=== PATIENT | female | born 1995 | race Two or more races ===

== ENCOUNTER 2023-09-15 09:17 | Emergency (ER) | payer MEDICAID ==
[~2023-09-15] VITALS: Ht 152.4 cm; Wt 93.0 kg
[2023-09-15 09:41] LABS: Basophils # (auto) 0.1 10 ^3/uL (0-0.2); Basophils % (auto) 0.8 % (0.0-2.0); Eosinophils # (auto) 0.2 10 ^3/uL (0-0.8); Eosinophils % (auto) 2.2 % (0.0-7.0); Hematocrit 38.4 % (36.0-46.0); Hemoglobin 13.2 g/dL (12.2-16.2); Lymphocytes # (auto) 2.2 10 ^3/uL (0.4-5.4); Lymphocytes % (auto) 30.3 % (10.0-50.0); Mean Corpuscular Hemoglobin 29.6 pg (28.0-32.0); Mean Corpuscular Hgb Conc. 34.3 g/dL (32.0-36.0); Mean Corpuscular Volume 86.3 fL (80.0-100.0); Monocytes # (auto) 0.6 10 ^3/uL (0-1.3); Monocytes % (auto) 8.7 % (0.0-12.0); Neutrophils # (auto) 4.3 10 ^3/uL (1.6-8.6); Nucleated Red Blood Cells % 0.1 %; Red Blood Cells 4.44 10^6/uL (4.0-5.20); Red Cell Distribution Width 13.7 % (11.8-14.3); White Blood Cell 7.3 10^3/uL (4.4-10.8)
[2023-09-15 09:47] LABS: Urine Epithelial Cast None Seen /hpf (<5)
[2023-09-15 10:07] LABS: Urine Bacteria NONE SEEN /hpf (None Seen); Urine Blood Negative /uL (Negative); Urine Clarity Clear (Clear); Urine Color Colorless (Yellow); Urine Protein, UAD Negative (Negative); Urine Specific Gravity 1.022 (1.001-1.035); Urine Urobilinogen Normal (Negative); Urine WBC 6 /hpf (0 - 5); Urine pH 5.5 (5.0-8.0)
[2023-09-15] MEDS ORDERED: NITR-87 PO (10:14)
[2023-09-15 11:00] VITALS: BP 123/86; PULSE 80; RESP 15; TEMP 98.6; O2SAT 98
[2023-09-15 13:36] LABS: Chloride 104 mmol/L (98-107); Sodium 136 mmol/L (136-145)
[2023-09-15 13:38] LABS: Anion Gap 10 (5-15); Carbon Dioxide 22 mmol/L (20-30)
[2023-09-15 13:43] LABS: Glucose 93 mg/dL (74-106)
[2023-09-15 13:44] LABS: Alkaline Phosphatase 104 U/L (46-116)
[2023-09-15 13:45] LABS: Albumin 4.8 g/dL (3.2-4.8); Aspartate Aminotransferase 22 U/L (13-40)
[2023-09-15 13:46] LABS: Alanine Aminotransferase 33 U/L (7-40); BUN/Creatinine Ratio 18.6 (10.0-20.0); Bilirubin, Total 0.6 mg/dL (0.2-1.0); Blood Urea Nitrogen 13 mg/dL (9-23); Potassium 4.2 mmol/L (3.5-5.1); Total Protein 8.7 g/dL (5.7-8.2)
== END 2023-09-15 11:02 | disposition home or self-care (01) ==
LOC: ER 09:17
DX: N39.0 Urinary tract infection, site not specified (principal); R00.2 Palpitations; Z79.899 Other long term (current) drug therapy
CPT/HCPCS: 36415; 71045; 80053; 81001; 84484; 85025; 93005

== ENCOUNTER 2024-03-16 01:37 | Emergency (ER) | payer MEDICAID ==
[~2024-03-16] VITALS: Ht 152.4 cm; Wt 94.0 kg
[~2024-03-16 01:37] MED LIST: NITR-87 PO
[2024-03-16 02:09] VITALS: BP 119/85; PULSE 102; RESP 20; O2SAT 99
== END 2024-03-16 08:35 | disposition left against medical advice (07) ==
LOC: ER 01:37
DX: R10.9 Unspecified abdominal pain (principal); Z53.21 Procedure and treatment not carried out due to patient leaving prior to being seen by health care provider